=== PATIENT | male | born 1965 | race Caucasian/White ===

== ENCOUNTER 2019-09-01 08:27 | Emergency (ER) | payer BC, SELFPAY ==
[2019-09-01 08:44] VITALS: BP 137/87; PULSE 72; RESP 16; TEMP 36.4; O2SAT 98
--- NOTE | 2019-09-01 08:47 | ED.GENADULT ---
HPI - General Adult General Chief complaint: Skin/Abscess/Foreign Body Stated complaint: pos shingles Time Seen by Provider: 09/01/19 08:51 Source: patient and RN notes reviewed Mode of arrival: ambulatory Limitations: no limitations History of Present Illness HPI narrative: 54-year-old male presents with complaints of red, raised, itching, and painful rash to right side for the past 7 days. Peroxide and OTC anti-itch cream without relief. Denies new changes in personal hygiene products or laundry detergent. No new foods or medications. No swelling, burning, bleeding, or drainage. Denies fever, chills, headaches, weakness, fatigue, myalgia, facial swelling, or tongue swelling. Remains active. The patient reports he have not been diagnosed with COVID-19. The patient reports he is not waiting for the results of a COVID-19 lab test. The patient reports he do not have fever, chills, weakness, fatigue, myalgia, or facial swelling. The patient reports he do not have a new or worsening cough or shortness of breath. Denies chest pain. The patient reports he do not have any rhinorrhea, congestion, sore throat, nausea, vomiting, abdominal pain, and diarrhea. Tolerating po intake well. Denies recent traveling. Denies concerns for COVID-19 or exposures been home since [id number] order except for essential household needs and return home. At this time, patient is not suspected of having COVID-19. Some parts of this dictation were generated by voice recognition software and may contain typographical and/or grammatical inaccuracies. Related Data Home Medications Medication Instructions Recorded Confirmed albuterol sulfate 2 puff INHALATION QID 09/01/19 09/01/19 budesonide-formoterol [Symbicort] 2 puff INHALATION Q12H 09/01/19 09/01/19 tiotropium bromide [Spiriva with 2 cap INHALATION DAILY 09/01/19 09/01/19 HandiHaler] Allergies Allergy/AdvReac Type Severity Reaction Status Date / Time No Known Allergies Allergy Unverified 09/01/19 08:50 Review of Systems Review of Systems: Narrative: CONSTITUTIONAL: Denies fever, chills, sweats. EYES: Denies visual changes, redness, discharge. ENT: Denies rhinorrhea, congestion, sore throat, otalgia. CARDIOVASCULAR: Denies chest pain, palpitations, edema. RESPIRATORY: Denies dyspnea, wheezing, cough. GASTROINTESTINAL: Denies abdominal pain, nausea, vomiting, diarrhea. GENITOURINARY: Denies dysuria, hematuria, abnormal discharge. SKIN: Complains of red, raised, itching, and painful rash to RT side. Denies drainage. MUSCULOSKELETAL: Denies acute back pain, joint pain, or myalgia. NEUROLOGIC: Denies numbness or focal weakness. PSYCHIATRIC: Denies anxiety or depression. All systems reviewed & are unremarkable except as noted in HPI and below. [facility] Past Medical History Medical History (Updated 09/02/19 @ 00:01 by Andrea Honre) Asthma COPD (chronic obstructive pulmonary disease) Surgical History Surgical History (Updated 09/01/19 @ 09:01 by JESSICA Caraballo) History of eye surgery Nail removed from RT eye History of hand surgery LT thumb surgery History of tonsillectomy Family History Family History (Updated 09/01/19 @ 09:02 by JESSICA Caraballo) Mother Alive and well Grandparent Diabetes mellitus Social History Social History (Updated 09/01/19 @ 09:02 by JESSICA Caraballo) Smoking status: Former smoker Smoking end date: 03/30/19 Alcohol intake: current Substance use: never Living arrangements: with family Occupation/Education: unemployed Gender identity (if verbalized by the patient): Male Comments At time of signature, agree with nurse past medical, surgical, social, and family history. There is no relevant family history pertinent to the presenting complaint. Exam Narrative: Exam Narrative: GENERAL: This is a well-nourished, well-developed patient, in no apparent distress. Talking in full sentences without deficit a
== END 2019-09-01 09:15 | disposition home or self-care (01) ==
PROVIDERS: Emergency Provider Nurse Practitioner Family; PCP Emergency Medicine
DX: B02.9 Zoster without complications (principal); J44.9 Chronic obstructive pulmonary disease, unspecified; Z87.891 Personal history of nicotine dependence; R03.0 Elevated blood-pressure reading, without diagnosis of hypertension
CPT/HCPCS: 99213; G0463

== ENCOUNTER 2019-09-12 08:54 | Outpatient (CLI) | payer BC, SELFPAY ==
--- NOTE | 2019-09-12 | ECHO_ITS ---
Patient Info Name: Saurabh Engel Age: 54 years : 1965 Gender: Male Ht: 72 in Wt: 205 lbs BSA: 2.19 m2 HR: 65 bpm BP: 142 / 96 mmHg Heart Rhythm: Sinus Rhythm Technical Quality: Good Exam Date: 09/12/2019 10:10 AM Exam Location: [facility] Patient Status: Outpatient Admit Date: 09/12/2019 Staff Ordering Physician: Felix, Elena BURGESS Rip Saw Operator: Adilia Aguirre RDCS Attending Provider: Felix, Elena BURGESS Exam Type: CA echo doppler color flow Study Info Indications - chao Complete two-dimensional, color flow and Doppler transthoracic echocardiogram is performed. Summary 1. Left ventricular systolic function is normal, estimated at 55-60%. 2. There is no increased left ventricular wall thickness. 3. The left ventricular diastolic function is normal. 4. Left atrial chamber dimension is mildly enlarged. 5. Right atrial chamber dimension is mildly enlarged. 6. There is no aortic valve stenosis. 7. There is mild mitral valve regurgitation. 8. No pulmonary hypertension, estimated pulmonary arterial systolic pressure is 26 mmHg. 9. There is trace tricuspid valve regurgitation. Left Ventricle Left ventricular chamber dimension is normal. Left ventricular systolic function is normal, estimated at 55-60%. There is no increased left ventricular wall thickness. The left ventricular diastolic function is normal. Right Ventricle Right ventricular chamber dimension is normal. Right ventricular systolic function is normal. Left Atria Left atrial chamber dimension is mildly enlarged. Right Atria Right atrial chamber dimension is mildly enlarged. Aortic Valve The aortic valve is not well visualized. There is no aortic valve stenosis. There is trace aortic valve regurgitation. Pulmonic Valve The pulmonic valve is normal. There is trace pulmonic regurgitation. Mitral Valve The mitral valve has normal leaflets. There is mild mitral valve regurgitation. Tricuspid Valve The tricuspid valve leaflets are normal. There is trace tricuspid valve regurgitation. No pulmonary hypertension, estimated pulmonary arterial systolic pressure is 26 mmHg. Pericardium/Pleural The pericardium appears normal. There is no pericardial effusion. Inferior Vena Cava Normal inferior vena cava with >50% collapse upon inspiration consistent with normal right atrial pressure, 5 mmHg. Aorta The aortic root size at the sinus of Valsalva is normal. Left Ventricular Outflow Tract Name Value Normal LVOT 2D LVOT Diameter 2.1 cm LVOT Doppler LVOT Peak Gradient 4 mmHg LVOT Mean Gradient 2 mmHg LVOT VTI 19 cm LVOT VTI/AV VTI Ratio 0.8 LVOT Stroke Volume 62 ml LVOT CO 14.0 l/min LVOT CI 6.4 l/min/m2 Pulmonic Valve Name Value Normal
--- NOTE | ~2019-09-12 | XR_ITS ---
EXAMINATION: XR chest 2V DATE: 09/12/2019 10:53 INDICATION: Chronic obstructive pulmonary disease, history of tobacco use TECHNIQUE: PA and lateral views of the chest are obtained. COMPARISON: 10/10/2013 FINDINGS: The lungs are free of acute opacities. There is no pleural effusion or pneumothorax. The ca rdiomediastinal silhouette is normal. There is mild thoracic spondylosis. IMPRESSION: 1. No acute cardiopulmonary abnormality. Reviewed, dictated and finalized at location A.
[2019-09-12 10:08] LABS: Alveolar/Arterial O2 Gradient 17.7 mmHg; Base Excess ABG 0.9 mEq/l (+/-2.0); Carboxyhemoglobin 0.4 % THb (0-2.0); Fractional Inspired Oxygen 21 %; HCO3 ABG 24.9 mEq/l (22.0-26.0); Methemoglobin ABG 0.5 %THb (0-1.5); Oxygen Content ABG 20.8 %vol (16.0-22.0); Oxygen Saturation ABG 96.9 % (95.0-100.0); Oxyhemoglobin 95.8 % THb (90.0-100.0); PCO2 ABG 37.8 mmHg (35.0-45.0); PO2 ABG 86.8 mmHg (80.0-100.0); PO2 FiO2 Ratio Arterial Blood 4.13 %; Reduced Hemoglobin 3.3 %THb (0-5.0); Total Hemoglobin 15.4 g/dL (12.0-18.0); pH ABG 7.436 (7.350-7.450)
[2019-09-12 10:10] LABS: Device ROOM AIR; Modified Allen's Test Pass; Site Drawn RIGHT RADIAL
== END 2019-09-12 08:55 | disposition home or self-care (01) ==
PROVIDERS: PCP Emergency Medicine; Visit Provider Nurse Practitioner
DX: J44.9 Chronic obstructive pulmonary disease, unspecified (principal); R06.09 Other forms of dyspnea; I34.0 Nonrheumatic mitral (valve) insufficiency
CPT/HCPCS: 36600; 71046; 82375; 82805; 83050; 93306

== ENCOUNTER 2019-11-07 13:37 | Outpatient (CLI) | payer BC, SELFPAY ==
--- NOTE | ~2019-11-07 | CT_ITS ---
EXAMINATION:CT lung screening DATE: 11/07/2019 13:58 INDICATION: Personal history of tobacco dependence. Smoker who quit 1 year ago with 40 pack year hist ory. TECHNIQUE: Computed tomography (CT) of the chest was performed without intravenous contrast. Automate d exposure control and iterative reconstruction technique were employed. The dose-length product (DLP ) was 169.83 mGy-cm. COMPARISON: Chest CT 10/18/2018 FINDINGS: There is mild atelectasis bilaterally. There are new patchy groundglass opacities in superi or segment right lower lobe, likely inflammation/infection. No pleural effusion. The heart size is no rmal. No pericardial effusion. There is a small sliding hiatal hernia. There is a 6.0 cm cyst in left kidney. There is moderate thoracic spondylosis. There is mild chronic anterior wedging of multiple t horacic vertebral bodies. IMPRESSION: 1. Lung-RADS category 2: Benign appearance or behavior. Continue annual screening with noncontrast lo w-dose chest CT in 12 months. Reviewed, dictated and finalized at location B. IMPRESSION: 1. Lung-RADS category 2: Benign appearance or behavior. Continue annual screeni ng with noncontrast low-dose chest CT in 12 months.
== END 2019-11-07 13:38 | disposition home or self-care (01) ==
PROVIDERS: PCP Emergency Medicine; Visit Provider Nurse Practitioner
DX: Z12.2 Encounter for screening for malignant neoplasm of respiratory organs (principal); Z87.891 Personal history of nicotine dependence
CPT/HCPCS: G0297

== ENCOUNTER 2020-02-07 07:31 | Outpatient (CLI) | payer BC, SELFPAY ==
--- NOTE | ~2020-02-07 | CT_ITS ---
EXAMINATION:CT chest wo con DATE: 02/07/2020 08:13 INDICATION: Radiologic infiltrate of lung. TECHNIQUE: Computed tomography (CT) of the chest was performed without intravenous contrast. Automate d exposure control and iterative reconstruction technique were employed. The dose-length product (DLP ) was 300.08 mGy-cm. COMPARISON: Chest CT 11/07/2019 FINDINGS: There is mild atelectasis bilaterally. Again seen are 1 mm centrilobular nodules in right u pper lobe, likely respiratory bronchiolitis. The groundglass opacities in superior segment right lowe r lobe seen on the prior CT have resolved. No pleural effusion. The heart size is normal. No pericard ial effusion. There is a small sliding hiatal hernia. Partially visualized is a cyst in left kidney. There is moderate thoracic spondylosis. There is mild chronic anterior wedging of multiple thoracic v ertebral bodies. IMPRESSION: 1. Interval resolution of the groundglass opacities in superior segment right lower lobe seen on the prior CT. 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 Interval resolution of the groundglass opacities in superior segment right l ower lobe seen on the prior CT.
== END 2020-02-07 07:32 | disposition home or self-care (01) ==
PROVIDERS: PCP Emergency Medicine; Visit Provider Nurse Practitioner
DX: R91.8 Other nonspecific abnormal finding of lung field (principal)
CPT/HCPCS: 71250

== ENCOUNTER → 2021-11-12 08:35 | Outpatient (CLI) | payer MEDICAID, SELFPAY ==
--- NOTE | ~2021-11-12 | CT_ITS ---
EXAMINATION: CT diagnostic chest wo con DATE: 11/12/2021 08:51 INDICATION: Follow-up pulmonary nodules TECHNIQUE: Computed tomography (CT) of the chest was performed without intravenous contrast. The dose -length product was 362.88 mGy-cm. Automated exposure control and iterative reconstruction technique were employed. COMPARISON: Comparison to multiple prior studies sequentially, with oldest reviewed study dated 11/06. FINDINGS: No thoracic lymphadenopathy. No significant pleural or pericardial effusion. There is a 6.2 cm left renal cyst partially visualized. Calcified granuloma right upper lobe. Mild emphysema. A few scattered 1 mm nodules are present in the upper lobes. No suspicious masses. No endobronchial lesion s. No pneumothorax. IMPRESSION: 1. No acute cardiopulmonary disease. 2: Stable to decreased number of 1 mm centrilobular nodules in the right upper lobe. Reviewed, dictated and finalized at location B.
== END ==
PROVIDERS: PCP Emergency Medicine; Visit Provider Nurse Practitioner
DX: R91.8 Other nonspecific abnormal finding of lung field (principal)
CPT/HCPCS: 71250

== ENCOUNTER 2023-06-04 13:04 | Emergency (ER) | payer BC, SELFPAY ==
--- NOTE | ~2023-06-04 | XR_ITS ---
EXAMINATION: XR chest 2V DATE: 06/04/2023 13:22 INDICATION: Shortness of breath and wheezing TECHNIQUE: Frontal and lateral views of the chest are obtained COMPARISON: 09/12/2019 FINDINGS: The lungs are free of acute opacities. No pleural effusion or pneumothorax. The cardiomedia stinal silhouette is normal. There is chronic mild anterior wedging of multiple thoracic vertebral bull dies. IMPRESSION: 1. No acute cardiopulmonary abnormality. 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
[2023-06-04 13:14] VITALS: BP 113/76; PULSE 88; RESP 20; TEMP 37; O2SAT 95
--- NOTE | 2023-06-04 13:20 | ED.SOB ---
HPI - SOB/Dyspnea General Chief Complaint: Shortness of Breath/Dyspnea Stated Complaint: SOB Time Seen by Provider: 06/04/23 13:27 Source: patient Mode of arrival: ambulatory Limitations: no limitations History of Present Illness HPI Narrative: 58 y/o male with hx COPD presented for c/o sob and wheezing x4 days. Endorses he had been able to sit and rest, which would improve the breathing but today he feels nothing is helping. Also says his chest feels tight with cough. Denies chest pain, palpitations, dizziness, fever or lethargy. Denies recent illness. Ran out of prescribed Trelegy. Has been using nebs and albuterol hfa, but states they are both . follows with pulmonology Related Data Home Medications Medication Instructions Recorded Confirmed albuterol sulfate 90 mcg/actuation 2 puff inhalation QID 09/01/19 09/01/19 aerosol inhaler budesonide-formoterol HFA 160 2 puff inhalation Q12H 09/01/19 09/01/19 mcg-4.5 mcg/actuation aerosol inhaler (Symbicort) tiotropium bromide 18 mcg capsule 2 cap inhalation DAILY 09/01/19 09/01/19 with inhalation device (Spiriva with HandiHaler) Allergies Allergy/AdvReac Type Severity Reaction Status Date / Time No Known Allergies Allergy Verified 06/04/23 13:10 Review of Systems Review of Systems: CONSTITUTIONAL: Denies body aches, fever, chills, or sweats. EYES: Denies visual changes, redness, or discharge. ENT: Denies rhinorrhea, congestion, sore throat, or otalgia. CARDIOVASCULAR: Denies chest pain, palpitations, or edema. RESPIRATORY: Reports sob, wheezing. GASTROINTESTINAL: Denies abdominal pain, nausea, vomiting, or diarrhea. SKIN: Denies rash, itching, or wounds. MUSCULOSKELETAL: Denies back pain, joint pain, or myalgia. NEUROLOGIC: Denies headache, numbness, tingling, or weakness. All systems reviewed & are unremarkable except as noted in HPI and below PMFSH Past Medical History Medical History Asthma COPD (chronic obstructive pulmonary disease) Surgical History Surgical History History of eye surgery Nail removed from RT eye History of hand surgery LT thumb surgery History of tonsillectomy Family History Family History Mother Alive and well Grandparent Diabetes mellitus Social History Social History Smoking status: Former smoker Smoking end date: 03/30/19 Alcohol intake: current Substance use: never Living arrangements: with family Occupation/Education: unemployed Gender identity (if verbalized by the patient): Male Comments At time of signature, I have reviewed and agree with nursing past medical, surgical, social and family history unless otherwise noted. Please see nursing chart for further information. There is no relevant family history pertinent to the presenting complaint Exam Narrative: GENERAL: Well-appearing, in no acute distress. EYES: EOMI. No redness or drainage. Conjunctivae normal. ENT: Mucous membranes pink and moist. No rhinorrhea. TMs normal bilaterally. Throat normal. Uvula midline. NECK: Normal AROM. Supple. CHEST: No respiratory distress. speaks full sentences. Upper lobes with inspiratory and expiratory wheezing; lower lobes with exp wheezing; audible wheezing noted. O2sat 95% HEART: Regular rate and rhythm. No murmur appreciated. SKIN: Warm, dry, no rash. Capillary refill normal. Normal skin turgor. NEURO: Alert and oriented x3. Gait steady. PSYCH: Normal affect. Course Course Emergency Course: Patient is aware of diagnosis, understands and agrees to treatment plan. Anticipatory guidance given. Patient agrees to follow-up as directed and is aware of reasons to seek care at the emergency department. Portions of this record may have been created wit
[2023-06-04] MEDS: IPRATROPIUM BR 0.02% INH SOLN 0.5 MG/2.5 ML VIAL INHALATION (13:36)
[2023-06-04] MEDS: ALBUTEROL SULFATE NEB 2.5 MG/3 ML INH INHALATION (13:36)
[2023-06-04 14:09] VITALS: PULSE 90; RESP 22; O2SAT 90
== END 2023-06-04 14:15 | disposition home or self-care (01) ==
PROVIDERS: Emergency Provider Nurse Practitioner Family; PCP Emergency Medicine
DX: J44.1 Chronic obstructive pulmonary disease with (acute) exacerbation (principal); Z87.891 Personal history of nicotine dependence
CPT/HCPCS: 71046; 94640; 99213; G0463